=== PATIENT | female | born 1960 | race Caucasian/White ===

== ENCOUNTER 2020-05-26 22:50 | Inpatient (IN) | payer OTHER ==
[~2020-05-26] VITALS: Ht 167.6 cm; Wt 113.4 kg
[2020-05-26 23:22] VITALS: BP 137/64
[2020-05-27] VITALS (7 sets, daily range): BP systolic 101–157; BP diastolic 65–87
[2020-05-27 00:22] LABS: MCV 117.5 fL (80.0-100.0); RBC 1.48 mil/uL (4.20-5.00); WBC 11.3 thou/uL (4.0-11.0)
[2020-05-27 00:23] LABS: MCH 36.5 pg (26.0-34.0); MCHC 31.1 g/dL (28.0-37.0); PLATELET COUNT 207 thou/uL (150-400)
[2020-05-27 00:28] LABS: HEMATOCRIT 17.4 % (37.0-47.0); HEMOGLOBIN 5.4 gm/dL (12.0-15.0)
[2020-05-27 00:34] LABS: CREATININE 5.3 mg/dL (0.6-1.0)
[2020-05-27 00:38] LABS: ALBUMIN 2.6 g/dL (3.4-5.0); TOTAL BILIRUBIN 0.7 mg/dL (0.2-1.0); TOTAL PROTEIN 5.4 g/dL (6.4-8.2)
[2020-05-27 01:13] LABS: ABSOLUTE NEUTROPHILS 8.4 thou/uL (1.4-8.2)
[2020-05-27 01:14] LABS: ANISOCYTOSIS 2+; LARGE PLATELETS FEW; MACROCYTES 3+; PLATELET ESTIMATE NORMAL; POIKILOCYTOSIS 2+; POLYCHROMASIA 1+; SCHISTOCYTES 1+
--- NOTE | 2020-05-27 08:46 | NUR ---
BLOOD FINISHED AT 0830. NO REACTION NOTED.
[2020-05-27 10:22] LABS: HEMATOCRIT 25.7 % (37.0-47.0); HEMOGLOBIN 8.3 gm/dL (12.0-15.0)
[2020-05-27 11:51] LABS: % SATURATION 33 % (20-39); IRON 80 ug/dL (50-170); TIBC 242 ug/dL (250-450)
[2020-05-27] MEDS ORDERED: LIPITOR40 MG PO (13:28)
[2020-05-27] MEDS ORDERED: CALCIUM ACETAT667 M2 PO (13:29)
[2020-05-27] MEDS ORDERED: CALCIUM 500+D1 EAC2 PO (13:31)
[2020-05-27] MEDS ORDERED: VITAMIN B-121000 MC2 PO (13:32)
[2020-05-27] MEDS ORDERED: DAPSONE100 MG PO (13:32)
[2020-05-27] MEDS ORDERED: SLEEP AID50 MG PO (13:33)
[2020-05-27] MEDS ORDERED: VITAMIN D21250 MCG PO (13:34)
[2020-05-27] MEDS ORDERED: HYDROXYZINE HCL25 M2 PO (13:35)
[2020-05-27] MEDS ORDERED: ISOSORBIDE MONO30 M1 PO (13:39)
[2020-05-27] MEDS ORDERED: ONDANSETRON ODT4 MG PO (13:42)
[2020-05-27] MEDS ORDERED: PROTONIX40 M2 PO (13:42)
[2020-05-27] MEDS ORDERED: MIRALAX119 GM PO (13:43)
[2020-05-27] MEDS ORDERED: SENNA PLUS TAB1 EACH PO (13:46)
[2020-05-27] MEDS ORDERED: TIROSINT75 MCG PO (13:48)
[2020-05-27] MEDS ORDERED: SUPER THERAVIT1 EACH PO (13:49)
[2020-05-27] MEDS ORDERED: CARVEDILOL12.5 MG PO (13:49)
[2020-05-27] MEDS ORDERED: LORATIDINE 10 M10 M1 PO (13:51)
[2020-05-27] MEDS ORDERED: DILAUDID1 MG/1 M1 PO (13:51)
[2020-05-27] MEDS ORDERED: NEURONTIN100 MG PO (13:52)
[2020-05-27] MEDS ORDERED: INSULIN DEGLUDEC SUBQ (13:55)
[2020-05-27] MEDS ORDERED: HUMALOG100 UNIT/1 SUBQ (13:56)
[2020-05-27 13:57] LABS: FOLIC ACID 32.4 ng/mL (8.6-58.9)
--- NOTE | 2020-05-27 14:56 | EKG ---
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
--- NOTE | 2020-05-27 15:31 | NUR ---
INITIAL ASSESSMENT: Received consult. REE reviewed chart and spoke with nursing and attending physician. Pt was admitted from [facility] due to anemia. Pt placed in Enhanced Isolation due to COVID-19. Pt is afebrile and on 2L of O2. REE placed call to pt's room. No answer. REE placed call to listed contact number: [phone]. Voice mailbox is full. REE spoke with Nohelia at [facility]. Pt has been at [facility] for skilled and pt was trying to find another facility or working on discharging home with HH. Pt is on dialysis. Pt had extended hospital stay at [facility] prior to going to [facility]. REE requested [facility] fax a face sheet as pt is listed as patient pay. [facility] No weekend discharge planned. REE is following to assist as needed with discharge planning.
[2020-05-27] MEDS ORDERED: AMITRIPTYLINE H25 M2 PO (16:27)
[2020-05-27] MEDS ORDERED: HYDROCODON-ACE1 EAC7 PO (16:27)
--- NOTE | 2020-05-27 18:04 | NUR ---
ASSUMED PATIENT CARE AT 0700. A/O X4. C/O LEFT FACE AND LEFT CHEST PAIN FROM SHINGLES. PAIN MEDS GIVEN. PATIENT HAD HD IN THE [facility]. PATIENT START CRY AND WANTS GO HOME. PATIENT STATE SHE NEVER AGREE TO STAY IN HOSPITAL. DR ALEMAN PAGED THAT PATIENT IS NOT STABLE TO DC HOME TODAY. RN CALLED PATIENT'S THAT EXPLAINED PATIENT SITUATION. PATIENT WILL BE SIGN AMA IF SHE STILL WANTS GO HOME.
[2020-05-27 20:50] LABS: HEMOGLOBIN 9.4 gm/dL (12.0-15.0); MCH 34.6 pg (26.0-34.0); MCHC 32.3 g/dL (28.0-37.0); RBC 2.71 mil/uL (4.20-5.00); RDW 24.5 % (10.5-14.5); WBC 13.6 thou/uL (4.0-11.0)
[2020-05-27 20:55] LABS: MCV 106.9 fL (80.0-100.0)
[2020-05-27 20:58] LABS: CALCIUM 7.7 mg/dL (8.5-10.1)
[2020-05-27 20:59] LABS: POTASSIUM 3.8 mmol/L (3.5-5.1)
--- NOTE | 2020-05-27 21:20 | NUR ---
ASSUMED [facility] AT 1900. PATIENT EXTREMELY CONFUSED, FORGETFUL, UNABLE TO ANSWER QUESTIONS APPROPRIATELY. DAUGHTER IN LAW CALLED, UNABLE TO PROVIDE PATIENT CODE. THIS RN CALLED , HE DID NOT HAVE CODE EITHER. PROVIDED WITH PATIENT CODE. PATIENTS DAUGHTER IN LAW CALLED AGAIN, DEMANDING TO SPEAK TO PATIENT, STILL UNABLE TO GIVE CODE. BECAME IRRATE, YELLING AND DEMANDING TO SPEAK WITH PATIENT. THIS RN TRIED TO TRANSFER CALL TO STOCK LETTERER. FAMILY MEMBER HUNG UP BEFORE CHARGE COULD SPEAK WITH HER. THIS NOTE IS BEING TYPED, FAMILY MEMBER CALLED BACK. ATTEMPTING TO ADDRESS SITUATION. IAN GIRON NP NOTIFIED OF PATIENTS ALTERED MENTAL STATUS, STAT ABG AND LABS ORDERED. OMAIRA HERNANDEZ NOTIFIED OF ORDER. STILL WAITING FOR RESULTS. AT THIS TIME PATIENT REMAINS VERY CONFUSED AND UNABLE TO PROVIDE ACCURATE INFORMATION AT THIS TIME. WILL CONTINUE TO MONITOR.
[2020-05-27 21:25] LABS: BE(vivo) 2.1 mmol/L (-2 to +3); HCO3 24.9 mmol/L (22.0-26.0); PCO2 31.8 mmHg (35.0-45.0); pH 7.512 (7.360-7.450); sO2 92.1 % (92.0-98.0)
[2020-05-27 21:26] LABS: PO2 55.9 mmHg (80.0-100.0)
[2020-05-28 03:58] VITALS: BP 163/90
[2020-05-28 05:49] LABS: HEMATOCRIT 26.1 % (37.0-47.0); HEMOGLOBIN 8.4 gm/dL (12.0-15.0); MCH 34.6 pg (26.0-34.0); MCHC 32.3 g/dL (28.0-37.0); MCV 107.1 fL (80.0-100.0); RBC 2.43 mil/uL (4.20-5.00); RDW 24.4 % (10.5-14.5); WBC 12.4 thou/uL (4.0-11.0)
[2020-05-28 06:10] LABS: CALCIUM 7.1 mg/dL (8.5-10.1); CREATININE 3.4 mg/dL (0.6-1.0); MAGNESIUM 1.8 mg/dL (1.8-2.4); POTASSIUM 4.3 mmol/L (3.5-5.1)
[2020-05-28 07:09] LABS: ESTIMATED AVERAGE GLUCOSE < 74 mg/dL (()); GLYCOHEMOGLOBIN (HGB A1C) < 4.2 % (4.8-5.6)
[2020-05-28 09:44] VITALS: BP 157/93
--- NOTE | 2020-05-28 10:45 | NUR ---
PATIENT WAKE UP AT 0830. AERT TO SELF AND TIME. CONFUSED AND AGITAED.PULLED MONITOR, IV, 02 OFF. REFUSED TO HAVE BREAKFAST. UPDATED WITH DR ALEMAN, PATIENTS AND SON. IV TEAM PUT TWO IV BACK IN LEFT ARM. AFEBRILE AT THIS TIME. WILL KEEP MONITOR.
[2020-05-28 16:15] VITALS: BP 160/72
[2020-05-28 16:35] VITALS: BP 160/72
--- NOTE | 2020-05-28 18:31 | NUR ---
PT CARE ASSUMED AT 1600. ASSESSMENTS CHARTED. MEDICATIONS CHARTED. LFA IV. MG IV, D/C BY PT. SINUS TACHYCARDIA. PT IS ACHS, BUT TENDS TO BE LOW RATHER THAN HIGH. SHINGLES, SCABBED OVER, LT FACE, LT CHEST. DIALYSIS MWF. LT ARM SHUNT , NOT READY TO USE. RT CHEST SHUNT.
[2020-05-28 20:22] VITALS: BP 127/74
[2020-05-29] VITALS (7 sets, daily range): BP systolic 107–164; BP diastolic 58–82
--- NOTE | 2020-05-29 03:48 | NUR ---
assumed pts care at the change of shift, awake, alert and oriented, sr/bbb, pain medicine given with partial relief, agitated and restless at the beginning of shift, meds given as per jul, no acute distress noted, pt sleepin, boni continue to monitor and follow poc
[2020-05-29 06:23] LABS: HEMATOCRIT 23.3 % (37.0-47.0); HEMOGLOBIN 7.5 gm/dL (12.0-15.0); MCH 34.6 pg (26.0-34.0); MCHC 32.1 g/dL (28.0-37.0); MCV 107.6 fL (80.0-100.0); PLATELET COUNT 140 thou/uL (150-400); RBC 2.17 mil/uL (4.20-5.00); RDW 23.7 % (10.5-14.5); WBC 8.9 thou/uL (4.0-11.0)
[2020-05-29 06:40] LABS: ALBUMIN 2.6 g/dL (3.4-5.0); CALCIUM 6.7 mg/dL (8.5-10.1); POTASSIUM 4.7 mmol/L (3.5-5.1); TOTAL PROTEIN 5.4 g/dL (6.4-8.2)
[2020-05-29 06:47] LABS: CREATININE 4.4 mg/dL (0.6-1.0)
[2020-05-29 07:20] LABS: ABSOLUTE NEUTROPHILS 6.6 thou/uL (1.4-8.2)
[2020-05-29 07:21] LABS: ANISOCYTOSIS 2+; MACROCYTES 2+; PLATELET ESTIMATE NORMAL
--- NOTE | 2020-05-29 20:30 | NUR ---
PT CARE ASSUMED AT 0700. ASSESSMENTS CHARTED. MEDICATIONS CHARTED. RAC IV. RFA IV. SINUS RHYTHM. ANURIC. DIALYSIS, RT CHEST, LEFT ARM SHUNT NOT READY TO USE. SHINGLES, LT FACE, LT CHEST. ALLERGIC TO HYDROCODONE AND OXYCODONE.
[2020-05-30 05:58] VITALS: BP 163/82
[2020-05-30 07:03] VITALS: BP 133/71
--- NOTE | 2020-05-30 07:28 | NUR ---
PATIENTS CARES WERE ASSUMED AT SHIFT CHANGE. PATIENT WAS ASSED AND MEDS WERE PASSED. PATIENT CONTINUES TO BE PAINFUL EVEN WITH LEASIONS BEING SCABBED. THE PLAN IS FOR HER TO GO HOME TODAY AND PAIN ISSUES DO NEED ADDRESS.PATIENT IS TO GO TO DIALYSIS TODAY, HOURLY ROUND WERE DONE. PATIENT COMFORT OBTAINED BY 0400. THE BED IS IN A LOW AND LOCKED POSITION. PATIENT VERBALIZED SHE DID NOT WANT HER BED ALARM ON DUE TO THE POSITION SHE NEEDS TO SLEEP IN.
[2020-05-30 08:31] LABS: HEMATOCRIT 23.8 % (37.0-47.0); HEMOGLOBIN 7.7 gm/dL (12.0-15.0)
[2020-05-30 09:04] LABS: ALBUMIN 2.7 g/dL (3.4-5.0); CALCIUM 6.3 mg/dL (8.5-10.1); CREATININE 5.3 mg/dL (0.6-1.0); PHOSPHORUS 6.9 mg/dL (2.6-4.7); POTASSIUM 4.9 mmol/L (3.5-5.1)
[2020-05-30 11:18] VITALS: BP 142/74
--- NOTE | 2020-05-30 16:07 | NUR ---
Patient admits from [facility]. She is new hemodylasis patient with plan for community dialysis at [facility]. Dr Rolle requested caset send referral packet for [facility] dialysis clinic [facility] as patient wants to see Dr Mullins. at bedside does not have insurance cards. he reports patient has medicare. Her face sheet is noted as patient pay. Until clarified cannot fax information. requested [place] send facesheet however that has not been sent. Called [facility] and requested clinicals. Alerted patiennt interest to change clinics. suzy cannot send her clinical information as she has never been a patient at their clinic. Cannot send with speaking to patient or faxed release. Sent a request for medicald information from . Cannot begin process of new clinic without clinical informatiom. SP with [facility] and report will send clinical from hospital. She will dialize today will have the flow sheet and cont to try to obtain clinical record. [facility] clinic reports Dr Mullins does not see patients at their clinic but he does at [facility]. Updated patient. She wants to cont with [facility]. Called [facility] and left message to call casemgt. Physical therapy worked with patient who could not stand, her legs buckled. Discussed with patient and spouse [facility] has dialysis on site as well. "Someone said you have rehab here." Discussed 5N and placed 5N consult. Requested [facility] liason call spouse. Patient has shingles and moans in pain. She is currently on 2 liters of oxygen which has not used before. 5N to eval in am. Later in afternoon patients face sheet updated she has medicare part A only. Cont to work on outpatient community dialsyis and dc plan.
[2020-05-30 17:12] VITALS: BP 164/54
--- NOTE | 2020-05-30 17:47 | NUR ---
ASSUMED CARE AT 0700. PATIENT TAKEN DOWN TO MRI BUT SCAN WAS NOT ABLE TO BE COMPLETED DUE TO PATIENT'S ANXIETY AND RESTLESSNESS. PATIENT PROGRESSING TOWARDS THE PLAN OF CARE. 2.5 L TAKEN OFF WITH DIALYSIS. PLAN IS TO DISHCARGE TOMORROW TO FACILITY.
[2020-05-30 20:11] VITALS: BP 103/62
[2020-05-31 03:59] VITALS: BP 146/63
[2020-05-31 07:15] VITALS: BP 156/76
--- NOTE | 2020-05-31 07:42 | NUR ---
PT DIDNT SLEEP WELL TONIGHT. COMPLAINTS OF PAIN THROUGHOUT THE NIGHT AND BEING UNCOMFORTABLE. A&OX4. SR ON THE MONITOR. FALL PRECAUTIONS IN PLACE. ON DYALYSIS. USING BSC COMMODE; UP X2, PATIENT IS VERY WEAK. PT HAS SHINGLES. MEDS GIVEN PER EMAR. ASSESSMENTS CHARTED. CONTINUING TO ASSESS ACCORDING TO POC.
[2020-05-31 12:30] VITALS: BP 144/78
--- NOTE | 2020-05-31 13:07 | NUR ---
Spoke with [facility] dialysis clinic [facility]. They have patient information but not scheduled at this time. They report have had her scheduled differenct times but patient has no discharged to home. Plan to keep clinic updated.
[2020-05-31 16:00] VITALS: BP 128/87
--- NOTE | 2020-05-31 16:41 | NUR ---
PT ALERT AND ORIENTED TIMES FOUR WITH PERIODS OF CONFUSION AND VERY AGITATED. VSS. PT TOLERATES MEDS AND MEALS. PT UP TO BSC WITH ASSIST OF TWO. PT WAS NOT COOPERATIVE AGAIN TODAY WITH HAVING MRI DONE, AND WAS SENT BACK TO THE UNIT. 'S AWARE. PT AT BEDSIDE THIS SHIFT. PLANS FOR POSSIBLE TRANSFER TO [facility] TOMORROW.
[2020-05-31 17:07] LABS: HEPATITIS B SURFACE AG Negative (Negative)
--- NOTE | 2020-05-31 17:16 | NUR ---
Per Rn patient went for MRI and legs buckled she was lowered to ground. Patient reports to [facility] she is waiting to go to MRI. Spouse called [facility] to alert when RN told him of incident today that patient called RN a liar. Spouse reports concern with her memory gaston in last 4 days. he reports this is not her baseline. Updated Dr Chou who will reach out to spouse. Updated RN.
[2020-05-31 20:45] VITALS: BP 127/54
[2020-06-01 04:55] VITALS: BP 142/70
--- NOTE | 2020-06-01 07:37 | NUR ---
PT HAD AN ENEVENTFUL NOC. PAIN MANAGED PER MAR, PT IS STABLE, WILL CONTINUE TO MONITOR
[2020-06-01 08:23] VITALS: BP 172/94
[2020-06-01] MEDS ORDERED: SEROQUEL 25 MG25 M1 PO ×2 (11:55→14:56)
[2020-06-01] MEDS ORDERED: GABAPENTIN 100100 MG PO (11:55)
[2020-06-01] MEDS ORDERED: PERCOCET PO (11:55)
[2020-06-01] MEDS ORDERED: HUMALOG100 UNIT/1 SUBQ (11:55)
[2020-06-01] MEDS ORDERED: DOXYCYCLINE HYC50 MG PO (11:55)
[2020-06-01] MEDS ORDERED: XANAX1 MG PO (11:55)
[2020-06-01 13:57] LABS: HEMATOCRIT 27.6 % (37.0-47.0)
[2020-06-01] MEDS ORDERED: NEURONTIN 400400 M1 PO (14:56)
[2020-06-01] MEDS ORDERED: TRAMADOL 50 MG50 MG PO (14:56)
[2020-06-01 16:03] VITALS: BP 172/94
[2020-06-01 16:13] VITALS: BP 138/57
--- NOTE | 2020-06-01 16:29 | NUR ---
ASSUMED CARE AT 0700. PT A&OX4. PT COMPLAINS OF NECK PAIN AND ABD PAIN FROM CONSTIPATION. PT WAS GIVEN MIRALAX AND SENNA-DOCUSATE TODAY AFTER DIALYSIS ORDERED. NEUROLOGIST WAS AWARE WHEN HE ROUNDED AND HE STATED HE WAS GOING TO CHANGE HER MEDICATIONS, REMOVING IV FENTANLY AND ADDING PO TRAMADOL.
--- NOTE | 2020-06-01 16:57 | NUR ---
Acute rehab evaled and accepting. Patient and spuse in agreement. Naeyly CASTANO practioner sp with patient son. Patients spouse is step dad to son. All in agreement. Spoke with Flo out patient [facility] clinic. Sp with Radha. Dialysis time will be made closer to discharge. Clinic requests updates as well.
[2020-06-01 17:15] VITALS: BP 138/57
--- NOTE | 2020-06-01 17:28 | NUR ---
REPORT CALLED TO OMAIRA PIZARRO ON 5N REHAB. IV'S REMOVED. PAIN MEDICINE GIVEN AT 1600. PT EATING DINNER PRIOR TO TRANSFER.
== END 2020-06-01 18:59 | DRG 177 ==
LOC: ER 22:50 → EROBS 05-27 00:39 → 2N 05-27 00:39 → 3W 05-27 00:39 → 2N 05-28 16:01
PROVIDERS: Emergency Medicine; Hospitalist; Nurse Practitioner; Nurse Practitioner Family; ADMIT Hospitalist; ATTEND Hospitalist
PROC: 30233N1 Transfusion of Nonautologous Red Blood Cells into Peripheral Vein, Percutaneous Approach (ICD-10-PCS; principal; 2020-05-27)
PROC: 5A1D70Z Performance of Urinary Filtration, Intermittent, Less than 6 Hours Per Day (ICD-10-PCS; 2020-05-30)
PROC: 5A1D70Z Performance of Urinary Filtration, Intermittent, Less than 6 Hours Per Day (ICD-10-PCS; 2020-06-01)
DX: U07.1 COVID-19 (principal); N18.6 End stage renal disease; J12.9 Viral pneumonia, unspecified; R65.11 Systemic inflammatory response syndrome (SIRS) of non-infectious origin with acute organ dysfunction; J96.00 Acute respiratory failure, unspecified whether with hypoxia or hypercapnia; J96.11 Chronic respiratory failure with hypoxia; Z68.41 Body mass index [BMI] 40.0-44.9, adult; N17.9 Acute kidney failure, unspecified; F23 Brief psychotic disorder; D53.9 Nutritional anemia, unspecified; F28 Other psychotic disorder not due to a substance or known physiological condition; E11.22 Type 2 diabetes mellitus with diabetic chronic kidney disease; K21.9 Gastro-esophageal reflux disease without esophagitis; K59.03 Drug induced constipation; E66.9 Obesity, unspecified; I12.9 Hypertensive chronic kidney disease with stage 1 through stage 4 chronic kidney disease, or unspecified chronic kidney disease; N18.9 Chronic kidney disease, unspecified; E03.9 Hypothyroidism, unspecified; T40.605A Adverse effect of unspecified narcotics, initial encounter; F32.9 Major depressive disorder, single episode, unspecified; B02.9 Zoster without complications; Z86.16 Personal history of COVID-19; Z87.891 Personal history of nicotine dependence; Z90.710 Acquired absence of both cervix and uterus; Y92.89 Other specified places as the place of occurrence of the external cause; D63.1 Anemia in chronic kidney disease
CPT/HCPCS: 10081; 10879; 32100

== ENCOUNTER 2020-06-01 13:02 | Inpatient (IN) | payer OTHER ==
[~2020-06-01] VITALS: Ht 167.6 cm; Wt 101.7 kg
--- NOTE | ~2020-06-01 | HC ---
[facility] [place] [address] CONSULTATION Name: EVELYN MOSLEY Room #: 512-P [facility] IN M.R.#: [id number] Admission: 06/01/20 Attend Phys: Kory Hansen MD Discharge: Date of : 62 Report #: [id number] THIS REPORT FOR: cc: [facility] - Clinic physician unknown [facility] - Clinic physician unknown Fabian Duke MD ~ DATE OF SERVICE: 06/14/2020 SURGEON: Fabian Duke M.D. REASON FOR CONSULTATION: Postherpetic neuralgia, left side. HISTORY OF PRESENT ILLNESS: The patient is a 59-year-old female, first admitted through the Emergency Department on 05/27/2020 from her [facility]. The patient had been recently discharged from [facility] the previous Saturday. She developed COVID and had pneumonia requiring intubation for 5-1/2 weeks. The patient suffered a kidney injury and is now dealing with end-stage renal disease requiring hemodialysis, likely secondary to the COVID infection as well as chronic oxygen. She also developed a secondary shingles infection with sepsis involving the left side of her chest, neck and face. The patient subsequently has been discharged from the acute care side of the hospital to rehab. I was consulted by Dr. Hansen's nurse practitioner today. The patient has not had any facial nerve involvement. She did not want to work today with the physical therapist secondary to her pain. 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 She has a history of diabetes, hypertension, anemia, hypothyroidism, end-stage renal disease, now on dialysis, COVID pneumonia with resultant hypoxemia on supplementary oxygen. Recent anemia which is improving. PAST SURGICAL HISTORY: Port-A-Cath placement, hemodialysis catheter placement, lumbar spine surgery, previous hysterectomy. SOCIAL HISTORY: She is a former smoker, [id number] history of smoking, quitting 6 years ago. She does not use alcohol. FAMILY HISTORY: Unknown. REVIEW OF SYSTEMS: Difficult to obtain as the patient is in pain and not very cooperative. PHYSICAL EXAMINATION: GENERAL: Shows a well-developed 59-year-old female, currently undergoing dialysis. [address] [address] CONSULTATION Name: EVELYN MOSLEY Room #: 512-P [facility] IN ..#: [id number] Admission: 06/01/20 Attend Phys: Kory Hansen MD Discharge: Date of : 62 Report #: [id number] VITAL SIGNS: Temperature of 98.6 with a T-max of 100, pulse of 95, blood pressure 139/64. HEENT: She is normocephalic. Pupils are equal, round, reactive to light. Otologic exam, normal external canal with minimal cerumen. No evidence of any herpetic lesions in the canal and tympanic membrane is intact. No middle ear effusion. Nasal exam, deviated septum to the left. Oral cavity, intact dentition, normal tongue and floor of mouth. NECK: No adenopathy, no masses. Trachea is midline. The patient has resolving herpetic lesions on the left side of her chest extending to her neck and cheek. These show no eschar and appear to be in late process of healing. The patient is tender over her left side. I do not see any abscess. NEUROLOGIC: Cranial nerves 2-12 are intact, specifically her facial nerve, but no evidence of any Medon Diamond syndrome. ASSESSMENT: 1. Post-herpetic neuralgia. This is not something that I would manage and would defer to Dr. Hansen and his team. Consideration can be given to Neurology and/or pain management help with this postherpetic pain. 2. I see no evidence of any Medon Diamond syndrome or complication of her facial nerve. The lesions do not extend down the external auditory canal. They do not involve her orbit. 3. End-stage renal disease secondary to COVID-19, now on dialysis. 4. Metabolic encephalopathy, improving. 5. 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 6. Anemia. 7. Type 2 diabetes mellitus. 8. Hypertension. 9. Obesity. PLAN: 1. Little more to offer from an otolaryngic standpoint other than what you are doing. She has been covered with gabapentin at this point, which does not seem to be helping with her pain. Consideration should be given to Neurology or pain management team at this point. 2. I see no evidence of any complication of the shingles, specifically no evidence of any Medon Diamond syndrome. I will not plan to follow along with you. Please reconsult for any change in clinical status. Referable to Otolaryngology. By: 1701 1825 Fabian Duke MD /nt
[~2020-06-01 13:02] MED LIST: AMITRIPTYLINE H25 M2 PO; CALCIUM 500+D1 EAC2 PO; CALCIUM ACETAT667 M2 PO; CARVEDILOL12.5 MG PO; DAPSONE100 MG PO; DILAUDID1 MG/1 M1 PO; DOXYCYCLINE HYC50 MG PO; GABAPENTIN 100100 MG PO; HUMALOG100 UNIT/1 SUBQ; HYDROCODON-ACE1 EAC7 PO; HYDROXYZINE HCL25 M2 PO; INSULIN DEGLUDEC SUBQ; ISOSORBIDE MONO30 M1 PO; LIPITOR40 MG PO; LORATIDINE 10 M10 M1 PO; MIRALAX119 GM PO; NEURONTIN100 MG PO; ONDANSETRON ODT4 MG PO; PERCOCET PO; PROTONIX40 M2 PO; SENNA PLUS TAB1 EACH PO; SEROQUEL 25 MG25 M1 PO; SLEEP AID50 MG PO; SUPER THERAVIT1 EACH PO; TIROSINT75 MCG PO; VITAMIN B-121000 MC2 PO; VITAMIN D21250 MCG PO; XANAX1 MG PO
[2020-06-01] MEDS ORDERED: SEROQUEL 25 MG25 M1 PO (14:56)
[2020-06-01] MEDS ORDERED: NEURONTIN 400400 M1 PO (14:56)
[2020-06-01] MEDS ORDERED: TRAMADOL 50 MG50 MG PO (14:56)
[2020-06-01 19:30] VITALS: BP 138/57
[2020-06-01 20:00] VITALS: BP 137/60
[2020-06-01 20:30] VITALS: BP 135/49
[2020-06-01 20:40] VITALS: BP 135/49
[2020-06-02 05:37] LABS: HEMATOCRIT 23.8 % (37.0-47.0); HEMOGLOBIN 7.7 gm/dL (12.0-15.0); MCH 34.5 pg (26.0-34.0); MCHC 32.5 g/dL (28.0-37.0); MCV 106.3 fL (80.0-100.0); RBC 2.24 mil/uL (4.20-5.00); RDW 21.4 % (10.5-14.5); WBC 5.5 thou/uL (4.0-11.0)
[2020-06-02 06:08] LABS: CALCIUM 7.4 mg/dL (8.5-10.1); POTASSIUM 3.4 mmol/L (3.5-5.1)
[2020-06-02 06:09] LABS: CREATININE 3.4 mg/dL (0.6-1.0)
[2020-06-02 20:21] VITALS: BP 154/76
[2020-06-03 19:50] VITALS: BP 148/72
[2020-06-04 00:09] LABS: URINE BILIRUBIN NEGATIVE (Negative); URINE BLOOD TRACE (Negative); URINE CLARITY CLOUDY; URINE COLOR YELLOW; URINE GLUCOSE-RANDOM* NEGATIVE (Negative); URINE KETONES NEGATIVE (Negative); URINE NITRITE-REFLEX NEGATIVE (Negative); URINE PROTEIN (DIPSTICK) 3+ (Negative); URINE UROBILINOGEN 0.2 E.U./dl (0.2-1.0)
[2020-06-04 00:10] LABS: URINE LEUKOCYTES-REFLEX 1+ (Negative)
[2020-06-04 00:55] LABS: BACTERIA-REFLEX >30 Many /HPF (None Seen); CASTS None Seen /LPF (None Seen); CRYSTALS None Seen /LPF (None Seen); MUCUS 0-3 Light strn/LPF (None Seen); SQUAMOUS None Seen /LPF (0-3); URINE RBC 0-2 Rare /HPF (0-2); URINE WBC-REFLEX 6-15 Few /HPF (0-5)
[2020-06-04 06:20] LABS: HEMATOCRIT 23.3 % (37.0-47.0); HEMOGLOBIN 7.5 gm/dL (12.0-15.0); MCH 33.8 pg (26.0-34.0); MCV 105.3 fL (80.0-100.0); RBC 2.21 mil/uL (4.20-5.00)
[2020-06-04 06:35] LABS: CALCIUM 7.9 mg/dL (8.5-10.1); POTASSIUM 3.7 mmol/L (3.5-5.1)
[2020-06-04 06:38] LABS: CREATININE 5.4 mg/dL (0.6-1.0)
[2020-06-04 08:00] VITALS: BP 127/48
[2020-06-04 12:09] LABS: FOLIC ACID 32.1 ng/mL (8.6-58.9)
[2020-06-04 13:42] VITALS: BP 153/67
[2020-06-04 20:00] VITALS: BP 148/71
[2020-06-05 07:20] VITALS: BP 186/83
[2020-06-05 19:05] VITALS: BP 131/59
[2020-06-06 08:00] VITALS: BP 174/85
[2020-06-06 16:00] VITALS: BP 153/94
[2020-06-06 19:18] VITALS: BP 177/70
[2020-06-07 07:30] VITALS: BP 186/79
[2020-06-07 16:09] VITALS: BP 186/79
[2020-06-07 19:44] VITALS: BP 129/54
[2020-06-08 07:49] VITALS: BP 147/54
[2020-06-08 20:08] VITALS: BP 152/69
[2020-06-09 05:50] LABS: HEMATOCRIT 27.5 % (37.0-47.0); MCH 34.2 pg (26.0-34.0); MCHC 32.9 g/dL (28.0-37.0); RBC 2.65 mil/uL (4.20-5.00); RDW 20.7 % (10.5-14.5); WBC 7.3 thou/uL (4.0-11.0)
[2020-06-09 08:00] VITALS: BP 155/71
[2020-06-09 10:07] LABS: ALBUMIN 2.3 g/dL (3.4-5.0); CALCIUM 7.9 mg/dL (8.5-10.1); CREATININE 4.2 mg/dL (0.6-1.0); MAGNESIUM 1.9 mg/dL (1.8-2.4); PHOSPHORUS 2.9 mg/dL (2.6-4.7); POTASSIUM 3.7 mmol/L (3.5-5.1)
[2020-06-09 12:38] VITALS: BP 131/63
[2020-06-09 19:57] VITALS: BP 157/70
[2020-06-10 08:00] VITALS: BP 132/62
[2020-06-10 13:26] VITALS: BP 132/62
--- NOTE | 2020-06-10 16:33 | PLAN ---
[facility] [place] [address] REHAB UNIT PLAN OF CARE Name: EVELYN MOSLEY Room #: 512-P ADM IN M.R.#: [id number] Admission: 06/01/20 Attend Phys: Kory Hansen MD Discharge: Date of : 62 Report #: [id number] THIS REPORT FOR: cc: [facility] - Clinic physician unknown [facility] - Clinic physician unknown Kory Hansen MD ~ DATE OF SERVICE: 06/03/2020 PROGRESS NOTE/OVERALL PLAN OF CARE SUBJECTIVE: Please see the progress note from earlier today. I agree with the documentation, history and physical examination as noted. The patient was admitted to the acute inpatient [facility]hab [facility] with acute metabolic encephalopathy. She has complications with left trigeminal nerve postherpetic neuralgia. She is on the Neurontin with increase as per Neurology. She is a dialysis patient. She has a left AFO with her prior history of left lower extremity Charcot foot. She was originally admitted with significant anemia with hemoglobin 5.5 and GI is consulted with plans for scoping the patient at a later date. She has had changes with her mental status with the metabolic encephalopathy along with medical complexity and generalized debilitation and has been admitted for acute inpatient rehabilitation. Agree with the exam as noted. She does have significant left facial pain, but feels that it is overall starting to improve. She has left facial shingle sites without any erythema or drainage. She follows basic commands with some latency to her responses. She has significant memory and cognitive deficits, which are noted by Speech Therapy. PHYSICAL EXAMINATION CHEST: Sounded clear to auscultation. CARDIAC: Regular rate and rhythm. ABDOMEN: Obese, bowel sounds positive. GENITOURINARY AND RECTAL: Deferred. Her strength is probably a grade 3+ to 4-/5. She does have decreased sensation distally in her upper and lower extremities and has the left AFO in place with her Charcot foot. AV fistula, left upper extremity. Bed to chair transfers are max assist, stand pivot, lower extremity dressing is max assist, sit to stand is mod assist. She does have significant cognitive deficits as noted above. ASSESSMENT: 1. Toxic metabolic encephalopathy. 2. Complication status post COVID-19 infection. 3. Dermatomal zoster, left trigeminal nerve postherpetic neuralgia. 4. Possible angiitis. 5. Acute anemia, possible gastrointestinal bleed. [address] [address] REHAB UNIT PLAN OF CARE Name: EVELYN MOSLEY Room #: 512-P ADM IN M.R.#: [id number] Admission: 06/01/20 Attend Phys: Kory Hansen MD Discharge: Date of : 62 Report #: [id number] 6. Left upper extremity premorbid weakness, numbness, status post AV fistula placement, 03/25/2020. 7. End-stage renal disease, on hemodialysis. 8. Diabetes mellitus type 2. 9. Hypertension. 10. Obesity. PLAN: The overall plan of care is based on the preadmission screen and information garnered from therapy assessments. 1. Estimated length of stay is probably going to be at least 10-14 days. 2. Medical prognosis is reasonably good. 3. Anticipated interventions includes the interdisciplinary acute inpatient rehabilitation program. 4. Anticipated functional outcomes would be for the patient to improve as far as transfers, mobility, ADLs, gait, cognition, so that she could hopefully return back to her prior living situation. 5. Discharge destination would be back home with her and 2 stairs to enter. She did use a walker. 6. Expected therapy by discipline includes PT, OT and speech 1 hour per day each five days a week throughout the duration of the acute inpatient rehabilitation stay. The patient's prognosis for significant practical improvement within a reasonable period of time appears good. Given the patient's complex medical condition and risk of further medical complication, rehabilitation services could not be safely provided at the lower level of care such as a [facility] facility. Agree with the current progress note documentation as is noted. <ELECTRONICALLY SIGNED> By: Kory Hansen MD 06/10/20 1633 1438 0205 Kory Hansen MD /nt
[2020-06-10 20:00] VITALS: BP 157/77
[2020-06-11 07:30] VITALS: BP 164/63
[2020-06-11 11:26] VITALS: BP 157/77
[2020-06-11 20:30] VITALS: BP 178/69
[2020-06-12 08:25] VITALS: BP 137/70
--- NOTE | 2020-06-12 13:02 | HC ---
[facility] [place] [address] CONSULTATION Name: EVELYN MOSLEY Room #: 512-P [facility] IN M.R.#: [id number] Admission: 06/01/20 Attend Phys: Kory Hansen MD Discharge: Date of : 62 Report #: [id number] THIS REPORT FOR: cc: [facility] - Clinic physician unknown [facility] - Clinic physician unknown Lex Sanchez PhD ~ DATE OF SERVICE: 06/05/2020 NEUROBEHAVIORAL STATUS EXAM ATTENDING PHYSICIAN: Kory Hansen MD PROP SAWYER: Lex Sanchez, PhD AGE: 59. CLINICAL PRESENTATION: The patient is a 59-year-old female admitted to the hospital on 05/27/2020 with severe shingles pain. The patient was discharged from on 05/23/2020 to the [facility] after a hospital stay for treatment of COVID-19. She was in the hospital for approximately 5-1/2 weeks. The patient was diagnosed with shingles and post-shingles neuralgia. There is a possibility of JUNCTION MAKER infection. Her assessment on admission to the rehabilitation unit includes acute metabolic encephalopathy complications, status post COVID-19 infection; dermatomal zoster; postherpetic neuralgia; possible angina and gyrus; acute anemia; possible GI bleed, premorbid weakness, numbness, status post fistula placement, AV fistula on 03/25/2020; ESRD, on HD; type 2 diabetes mellitus; hypertension and obesity. A complete description of her medical condition and history along with medications can be found in her medical record. Neuropsychological consultation was requested to provide assistance in the assessment of cognitive and emotional status and to provide recommendations and services. Prior to this most recent admission and the deterioration in her medical condition upon the infection with COVID, she was independent with basic and instrumental ADL's. She has one child. 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 TECHNIQUES UTILIZED: Clinical interview, review of medical records, staff consultation and behavioral observation, family interview -- , mini mental status exam 2 standard version. EXAMINATION FINDINGS: The patient was restless and fidgety throughout the assessment. She was moving around on her bed, appearing very uncomfortable, reported experiencing generalized pain. She describes her symptoms to include [facility] [address] [place] [address] CONSULTATION Name: EVELYN MOSLEY Room #: 512-P [facility] IN M.R.#: [id number] Admission: 06/01/20 Attend Phys: Kory Hansen MD Discharge: Date of : 62 Report #: [id number] memory, word finding deficits, anxiety, depression and sleep disturbance. She does not report difficulty with appetite. Pain is reported as severe and difficult to manage. Her performance on the MMSE 2 brief version was of 13/16, which is a T score 33 and percentile rank of 4 and suggests imparied cognitive functioning. She was 3/3 for initial registration, 4/5 for orientation to time, 5/[address] She was 1/3 for immediate recall of 3 items after a brief time delay and distraction. The MMSE 2 standard version was discontinued because of the patient's degree of physical distress. She was 0/5 for serial 7's. Constructive tasks were not administered due to her current presentation. The patient is presenting with neurocognitive deficits. Evidence of myoclonus and cerebellar ataxia is noted. She is alert and oriented. However, difficulty with concentration, immediate recall and impulsivity are suggested. DIAGNOSTIC IMPRESSION: Neurocognitive disorder -- extent to be determined, likely mult-factoral secondary to medical etiology, with agitation and myoclonus Adjustment disorder with anxiety and depressed mood. RECOMMENDATIONS: Myoclonus and cerebellar ataxia have been among neurological conditions that have been seen in some patients post COVID 19 infection. She may benefit from treatment with an antidepressant medication. Verbal praise and complements about participation in therapies will be helpful. This use of relaxation strategies and behavioral pain managment. Speech therapy will be helpful for cognitive stimulation and implementation of compensatory strategies for variability in cognition. She will likely need assistance managing instrumental activities of daily living upon discharge. Followup neuropsychological evaluation is indicated upon stabilization of her medical condition upon discharge. [address] [address] CONSULTATION Name: EVELYN MOSLEY Room #: [facility]-P [facility] IN M.R.#: [id number] Admission: 06/01/20 Attend Phys: Kory Hansen MD Discharge: Date of : 62 Report #: [id number] Thank you very much for allowing me to provide the consultation on this patient. <ELECTRONICALLY SIGNED> By: Lex Sanchez, PhD 06/12/20 1302 [id number] Lex Sanchez, PhD /nt
[2020-06-13 08:00] VITALS: BP 150/64
[2020-06-13 19:20] VITALS: BP 139/64
[2020-06-14 07:15] VITALS: BP 139/64
[2020-06-14 19:49] VITALS: BP 133/37
[2020-06-15 08:00] VITALS: BP 138/54
[2020-06-15 08:05] LABS: CALCIUM 7.9 mg/dL (8.5-10.1); CREATININE 2.9 mg/dL (0.6-1.0); MAGNESIUM 1.7 mg/dL (1.8-2.4); PHOSPHORUS 2.8 mg/dL (2.6-4.7); POTASSIUM 3.4 mmol/L (3.5-5.1)
[2020-06-15 08:22] LABS: HEMATOCRIT 28.9 % (37.0-47.0); HEMOGLOBIN 9.1 gm/dL (12.0-15.0); MCH 32.3 pg (26.0-34.0); MCHC 31.6 g/dL (28.0-37.0); PLATELET COUNT 248 thou/uL (150-400); RBC 2.83 mil/uL (4.20-5.00); RDW 19.6 % (10.5-14.5); WBC 9.8 thou/uL (4.0-11.0)
[2020-06-15 09:01] LABS: ABSOLUTE NEUTROPHILS 7.2 thou/uL (1.4-8.2); PLATELET ESTIMATE NORMAL
[2020-06-15 09:02] LABS: ANISOCYTOSIS 2+
[2020-06-15 14:27] VITALS: BP 138/54
[2020-06-15 20:00] VITALS: BP 148/58
[2020-06-16 08:00] VITALS: BP 156/72
[2020-06-16] MEDS ORDERED: PROTONIX40 M2 PO (08:22)
[2020-06-16] MEDS ORDERED: CARVEDILOL12.5 MG PO (08:22)
[2020-06-16] MEDS ORDERED: LIPITOR40 MG PO (08:22)
[2020-06-16] MEDS ORDERED: TIROSINT75 MCG PO (08:22)
[2020-06-16] MEDS ORDERED: AMITRIPTYLINE H25 M2 PO (08:22)
[2020-06-16] MEDS ORDERED: ROBAXIN 750 MG750 MG PO (08:22)
[2020-06-16] MEDS ORDERED: NEURONTIN 300M300 M2 PO (08:22)
[2020-06-16] MEDS ORDERED: FLOMAX0.4 MG PO (08:22)
[2020-06-16] MEDS ORDERED: RETACRIT10000 UNIT IV PUSH (08:22)
[2020-06-16 20:25] VITALS: BP 174/63
[2020-06-17 07:51] VITALS: BP 158/67
[2020-06-17] MEDS ORDERED: TRAMADOL 50 MG50 MG PO (08:32)
[2020-06-17] MEDS ORDERED: LORAZEPAM 0.50.5 MG PO (08:33)
[2020-06-17] MEDS ORDERED: GLYBURIDE 5 MG T5 M1 PO (08:42)
[2020-06-17 11:00] VITALS: BP 138/54
[2020-06-17 14:01] VITALS: BP 138/54
== END 2020-06-17 14:00 | disposition home health service (06) | DRG 91 ==
PROVIDERS: Hospitalist; Nurse Practitioner; Nurse Practitioner Family; ADMIT Physical Medicine & Rehabilitation; ATTEND Physical Medicine & Rehabilitation
DX: G92 Toxic encephalopathy (principal); N18.6 End stage renal disease; E43 Unspecified severe protein-calorie malnutrition; G72.81 Critical illness myopathy; N39.0 Urinary tract infection, site not specified; B02.29 Other postherpetic nervous system involvement; I12.0 Hypertensive chronic kidney disease with stage 5 chronic kidney disease or end stage renal disease; K92.2 Gastrointestinal hemorrhage, unspecified; G11.9 Hereditary ataxia, unspecified; B96.1 Klebsiella pneumoniae [K. pneumoniae] as the cause of diseases classified elsewhere; F60.9 Personality disorder, unspecified; Z20.822 Contact with and (suspected) exposure to COVID-19; E66.9 Obesity, unspecified; R41.9 Unspecified symptoms and signs involving cognitive functions and awareness; F43.23 Adjustment disorder with mixed anxiety and depressed mood; E11.22 Type 2 diabetes mellitus with diabetic chronic kidney disease; E03.9 Hypothyroidism, unspecified; D53.9 Nutritional anemia, unspecified; K21.9 Gastro-esophageal reflux disease without esophagitis; F32.9 Major depressive disorder, single episode, unspecified; K59.00 Constipation, unspecified; Z86.16 Personal history of COVID-19; R33.9 Retention of urine, unspecified; I77.6 Arteritis, unspecified; G25.3 Myoclonus; Z99.2 Dependence on renal dialysis; Z90.710 Acquired absence of both cervix and uterus; Z68.36 Body mass index [BMI] 36.0-36.9, adult
CPT/HCPCS: 10112; 32100